=== PATIENT | female | born 1955 | race Caucasian/White ===

== ENCOUNTER → 2017-10-18 | Outpatient (CLI) | payer OTHER ==
[~2017-10-18] VITALS: Ht 167.6 cm; Wt 90.7 kg
[~2017-10-18] MED LIST: ACYCLOVIR 400400 M1 PO; AMARYL4 MG PO; AMBEREN; ASPIRIN EC81 M1 PO; CALCIUM WITH V PO; CENTRUM SILVER1 EAC4 PO; CIPROFLOXACIN500 M1 PO; CRESTOR5 MG PO; ENALAPRIL MALEA20 MG PO; ESTRACE1 MG PO; FISH OIL 1,001000 M2 PO; GLUCOPHAGE500 MG PO; INVOKANA300 MG PO; MOBIC15 MG PO; TRULICITY1.5 MG/0.5 SUBQ; VITAMIN D1000 UNI1 PO
--- NOTE | ~2017-10-18 | S ---
[facility] [place] [address] SURGICAL PATH RPT PROCEDURE Name: NISHA FLANNERY René Room #: [facility].#: [id number] Admission: 10/18/17 Date of : 55 Discharge: Report #: [id number] Path Case #: [id number] PATHOLOGY REPORT COLLECTION DATE: 10/18/2017 RECEIVED DATE: 10/18/2017 SUBMITTING PHYS: Dr. Allan Polanco OTHER PHYS: Dr. Rose Mary Maya SPECIMEN(S) RECEIVED: A.Polyp at cecum * * * * * * * * * * * * FINAL DIAGNOSIS: "Polyp at cecum", biopsy: - Tubular adenoma; no high-grade dysplasia. (CLW:tim; 10/19/2017) PATHOLOGIST: Mariam Patel M.D. REPORT ELECTRONICALLY SIGNED BY: Mariam Patel M.D. DATE/TIME: 10/19/2017 14:41 * * * * * * * * * * * * GROSS PATHOLOGY: The specimen is received in formalin, labeled "Nisha Flannery and polyp at cecum", is a alexander polypoid soft tissue measuring 0.2 cm in greatest dimension, entirely submitted in A1. (SWS; 10/18/2017) CLINICAL HISTORY: History polyps, diverticulosis, internal hemorrhoid INITIAL CPT CODE(S): A; 60962 Professional services performed by [facility] at [facility] [address], [place] [address] Technical services performed by [facility] at [address] [place] [address]., [address], [place] [address]. [facility] [address] [place] [address] SURGICAL PATH RPT PROCEDURE Name: NISHA FLANNERY Room #: [facility].#: [id number] Admission: 10/18/17 Date of : 55 Discharge: Report #: [id number] Path Case #: [id number] [place] [address] PHONE: [phone] DIRECTOR: Sj Ricketts M.D. * * * END OF REPORT * * *
== END | disposition home or self-care (01) ==
LOC: GI 05:59
DX: Z09 Encounter for follow-up examination after completed treatment for conditions other than malignant neoplasm (principal); D12.0 Benign neoplasm of cecum; K57.30 Diverticulosis of large intestine without perforation or abscess without bleeding; K64.8 Other hemorrhoids; I10 Essential (primary) hypertension; E11.9 Type 2 diabetes mellitus without complications; E78.5 Hyperlipidemia, unspecified; Z85.828 Personal history of other malignant neoplasm of skin; Z87.891 Personal history of nicotine dependence; Z98.890 Other specified postprocedural states; Z79.899 Other long term (current) drug therapy; Z88.0 Allergy status to penicillin; Z79.82 Long term (current) use of aspirin; Z86.010 Personal history of colon polyps
CPT/HCPCS: 62110; 62900